=== PATIENT | male | born 1970 | race Hispanic/Latino ===

== ENCOUNTER 2016-12-28 05:52 | Emergency (ER) | payer SELFPAY ==
[2016-12-28] MEDS ORDERED: Sodium Chloride 0.9% 500 ML IV ONE (06:19)
[2016-12-28] MEDS ORDERED: Sodium Chloride 0.9% 1,000 ML IV ONE (06:20)
--- NOTE | 2016-12-28 06:24 | C.PDOC ---
History Of Present Illness A 46 y/o male c/o withdraw from heroin, 5-7 episodes of diarrhea, and abdominal pain that began today. Pt notes his last use was 5 hrs ago and [place] [facility] [place] also requesting detox. Pt denies fever, chills, nausea, vomiting, or any other complaints. Time Seen by Provider: 12/28/16 06:12 Chief Complaint (Nursing): GI Problem History Per: Patient History/Exam Limitations: no limitations Onset/Duration Of Symptoms: Hrs Current Symptoms Are (Timing): Still Present Severity: Mild Location Of Pain/Discomfort: Diffuse Associated Symptoms: Diarrhea. denies: Fever, Chills, Nausea, Vomiting Recent travel outside of the [place]: No Additional History Per: Patient Past Medical History Reviewed: Historical Data, Nursing Documentation, Vital Signs Vital Signs: Last Vital Signs Temp 98.1 F 12/28/16 06:02 Pulse 74 12/28/16 06:02 Resp 20 12/28/16 06:02 BP 155/92 H 12/28/16 06:02 Pulse Ox 100 12/28/16 06:26 - Medical History PMH: Bipolar Disorder, Depression, Schizophrenia Family History: States: Unknown Family Hx - Social History Hx Alcohol Use: Yes Hx Substance Use: Yes - Immunization History Hx Tetanus Toxoid Vaccination: No Hx Influenza Vaccination: No Hx Pneumococcal Vaccination: No Review Of Systems Except As Marked, All Systems Reviewed And Found Negative. Constitutional: Positive for: Other (Heroin abuse). Negative for: Fever, Chills Gastrointestinal: Positive for: Abdominal Pain, Diarrhea. Negative for: Nausea , Vomiting Physical Exam - Physical Exam Appears: Non-toxic, No Acute Distress, Other (Conscious. No tremors noted) Skin: Warm, Dry Head: Atraumatic, Normacephalic Eye(s): bilateral: Normal Inspection Cardiovascular: Rhythm Regular, No Murmur Respiratory: Normal Breath Sounds, No Rales, No Rhonchi, No Wheezing Gastrointestinal/Abdominal: Soft, Tenderness (Mid abdominal tenderness), No Guarding, No Rebound Extremity: Normal ROM, No Tenderness, No Deformity, No Other (No tremors) Extremity: Bilateral: Normal Color And Temperature, Normal ROM Neurological/Psych: Oriented x3 (Awake and alert), Normal Speech, Other (No focal deficit) Gait: Steady ED Course And Treatment O2 Sat by Pulse Oximetry: 100 (RA) Pulse Ox Interpretation: Normal Medical Decision Making Medical Decision Making: Impression: 46 y/o male c/o abdominal pain, diarrhea, and heroin withdraw since today Plans: Blood labs, IV fluids, UA, reassess Disposition - Disposition Disposition Time: 07:00 Condition: STABLE - Clinical Impression Clinical Impression: Drug dependence syndrome, Diarrhea - Scribe Statement The provider has reviewed the documentation as recorded by the Scribe Zia anne All medical record entries made by the Lucyibjoel were at my direction and personally dictated by me. I have reviewed the chart and agree that the record accurately reflects my personal performance of the history, physical exam, medical decision making, and the department course for this patient. I have also personally directed, reviewed, and agree with the discharge instructions and disposition.
[2016-12-28 06:54] LABS: BASO # 0.1 K/uL (0.0-0.2); BASO % 0.6 % (0.0-2.0); EOS # 0.3 K/uL (0.0-0.7); EOS % 3.1 % (0.0-4.0); HEMATOCRIT 38.1 % (35.0-51.0); LYMPH # 3.1 K/uL (1.0-4.3); LYMPH % 33.7 % (20.0-40.0); MEAN CELL VOLUME 90.8 fL (80.0-94.0); MEAN CORPUSCULAR HEMOGLOBIN 30.7 pg (27.0-31.0); MEAN CORPUSCULAR HGB CONC 33.8 g/dL (33.0-37.0); MEAN PLATELET VOLUME 7.3 fL (7.2-11.7); MONO # 0.9 K/uL (0.0-0.8); MONO % 9.3 % (0.0-10.0); RED CELL DISTRIBUTION WIDTH 15.8 % (11.5-14.5); WHITE BLOOD COUNT 9.3 K/uL (4.8-10.8)
[2016-12-28 06:57] LABS: RBC URINE 1 /hpf (0-3); URINE BILIRUBIN NEGATIVE (NEGATIVE); URINE BLOOD NEGATIVE (NEGATIVE); URINE COLOR Yellow (YELLOW); URINE GLUCOSE (UA) NORMAL (Normal); URINE KETONE NEGATIVE (NEGATIVE); URINE LEUKOCYTE ESTERASE NEG Leu/uL (Negative); URINE PROTEIN NEGATIVE (NEGATIVE); URINE UROBILINOGEN NORMAL mg/dL (0.2-1.0); WBC URINE 1 /hpf (0-5)
[2016-12-28 07:03] LABS: CHLORIDE 97 mmol/L (98-107); POTASSIUM 4.3 mmol/L (3.6-5.2); SODIUM 137 mmol/L (132-148)
[2016-12-28 07:05] LABS: BILIRUBIN,TOTAL 0.6 mg/dL (0.2-1.3); CARBON DIOXIDE 27 mmol/L (22-30); GFR AFRICAN-AMERICAN > 60
[2016-12-28 07:06] LABS: ALB/GLOB RATIO 1.3 (1.0-2.1); ALKALINE PHOSPHATASE 45 U/L (38-126); ALT/SGPT 24 U/L (21-72); AST/SGOT 21 U/L (17-59); BLOOD UREA NITROGEN 14 mg/dL (9-20); CALCIUM 8.1 mg/dl (8.6-10.4); GLUCOSE,RANDOM 99 mg/dL (75-110); TOTAL PROTEIN 7.4 g/dL (6.3-8.3)
[2016-12-28 07:07] LABS: ALCOHOL SERUM < 10 mg/dl (0-10)
[2016-12-28 08:25] VITALS: BP 156/88; PULSE 75; RESP 18; TEMP 98.3; O2SAT 99
== END 2016-12-28 08:47 | disposition home or self-care (01) ==
LOC: C.ER 05:52
DX: F11.20 Opioid dependence, uncomplicated (principal); R19.7 Diarrhea, unspecified
CPT/HCPCS: 80053; 81001; 83690; 85025; 96360; 96361; 99285; G0480; J7040

== ENCOUNTER 2017-01-08 23:45 | Inpatient (IN) | payer SELFPAY ==
--- NOTE | 2017-01-09 00:17 | C.PDOC ---
History Of Present Illness pt was medically cleared at [facility] and was accepted for admission by dr prince. no f/c/n/v Time Seen by Provider: 01/09/17 00:09 Chief Complaint (Nursing): Psychiatric Evaluation History Per: Patient History/Exam Limitations: no limitations Onset/Duration Of Symptoms: Days Current Symptoms Are (Timing): Still Present Suicide/Self Injury Attempted (Context): None Modifying Factor(s): None Severity: None Pain Scale Rating Of: 0 Associated Symptoms: Depression Involuntary Hold By: None Recent travel outside of the [place]: No Additional History Per: Patient, Other Past Medical History Reviewed: Historical Data, Nursing Documentation, Vital Signs Vital Signs: Last Vital Signs Temp 98.2 F 01/08/17 23:55 Pulse 80 01/08/17 23:55 Resp 16 01/08/17 23:55 BP 127/78 01/08/17 23:55 Pulse Ox 97 01/08/17 23:55 - Medical History PMH: Bipolar Disorder, Depression, Schizophrenia Family History: States: No Known Family Hx - Social History Hx Alcohol Use: Yes Hx Substance Use: Yes - Immunization History Hx Tetanus Toxoid Vaccination: Yes Hx Influenza Vaccination: Yes Hx Pneumococcal Vaccination: Yes Review Of Systems Constitutional: Negative for: Fever Cardiovascular: Negative for: Chest Pain Respiratory: Negative for: Shortness of Breath Gastrointestinal: Negative for: Nausea Genitourinary: Negative for: Dysuria Musculoskeletal: Negative for: Back Pain Skin: Negative for: Rash Neurological: Negative for: Weakness Psych: Positive for: Depression Physical Exam - Physical Exam Appears: Non-toxic, No Acute Distress Skin: Warm, Dry Chest: Symmetrical Respiratory: No Rales, No Rhonchi, No Wheezing Gastrointestinal/Abdominal: Soft, No Tenderness, No Distention Extremity: Normal ROM Neurological/Psych: Oriented x3, Normal Speech, Normal Cognition Gait: Steady ED Course And Treatment O2 Sat by Pulse Oximetry: 97 Disposition Discussed With : Prasanth Prince Comment: acceptd the pt on his service and took over the care at 12:09AM Doctor Will See Patient In The: Hospital Counseled Patient/Family Regarding: Studies Performed, Diagnosis - Disposition Disposition: HOSPITALIZED Disposition Time: 00:09 Condition: FAIR - POA Present On Arrival: None - Clinical Impression Clinical Impression: Schizophrenia Decision To Admit - Pt Status Changed To: Hospital Disposition Of: Inpatient - Admit Certification Admit to Inpatient:: After my assessment, the patient will require hospitalization for at least two midnights. This is because of the severity of symptoms shown, intensity of services needed, and/or the medical risk in this patient being treated as an outpatient. - InPatient: Physician Admission Certification: I certify that this patient requires 2 or more midnights of care for the following reason:: After my assessment, the patient will require hospitalization for at least two midnights. This is because of the severity of symptoms shown, intensity of services needed, and/or the medical risk in this patient being treated as an outpatient. - . Bed Request Type: Psychiatry Admitting Physician: Prasanth Prince Patient Diagnosis: Schizophrenia
[2017-01-09] MEDS ORDERED: Pneumococcal 23-Valent Vaccine IM ONE (01:59)
--- NOTE | 2017-01-09 11:02 | PCM.PSYCH ---
Initial Psychiatric Evaluation - Initial Psychiatric Evaluation Type of Admission: Voluntary Legal Status: Capacity Chief Complaint (in patient's own words): "I feel horrible." History of Present Illness and Precipitating Events: Patient was seen and evaluated, chart reviewed and discussed with the nurse. The patient is a 46yo male who is here with Bipolar disorder, PTSD, and suicidal ideation. The patient states that he is single with no kids and is supported by his parents. He says that he lives with his parents. The patient states that he wanted to commit suicide yesterday by jumping in front of a train but the train never came. He states that he went to [facility] and then was transferred here last night. He says that he wanted to kill himself because "things are fucked up" and that he "doesn't feel comfortable in his skin". He was diagnosed with Bipolar disorder and PTSD about 6-7 years ago. He says that he was seeing a psychiatrist, Dr. Lehman, in [place] and that he was taking several medications including Risperdal, Xanax, Seroquel, Haldol, Moban, Prozac, Fordyce , Cogentin, and Adderall. He stopped taking his medications and seeing his psychiatrist because his insurance ran out. He states that he was diagnosed with PTSD after his nephew committed suicide at the age of 21 and his aunt of ovarian cancer about 4-5 years ago. He says that he has been shooting heroin, 20-30 bags a day for 5 years and that he last used yesterday. He has been to detox once at [facility] a couple of days ago. He states that he left a day early and then relapsed. He denies going to rehab in the past and states that his longest sobriety was 2 years. He states that he has used Suboxone on the streets and at detox. He drinks 1/5 bottle of vodka a day and has been drinking since he was 15yo. He last consumed alcohol yesterday. He says that he feels hopeless, anxious, fatigued, has lost interest in life, and has difficulty getting out of bed. He denies a change in appetite. He states that he heard voices yesterday telling him to jump in front of a train but is currently denying any auditory or visual hallucinations. He complains of withdrawal symptoms of nausea, abdominal pain, and tremors but denies any vomiting. He denies any allergies or a history of seizures. He says that his aunts, uncles, and cousins have been diagnosed with Bipolar disorder as well and have a history of substance abuse. The patient appears very upset, irritable, and tearful throughout the duration of the interview. He has a depressed mood and is hopeless. He is isolative and has been laying in his room in darkness. He appears to be kempt and has organized speech. He reports irritability and agitation. PMH None reported Current Medications: Active Medications Generic Name Dose Route Start Last Admin Trade Name Freq PRN Reason Stop Dose Admin Hydroxyzine HCl 50 mg 01/09/17 01:06 01/09/17 10:24 Atarax PO 50 mg Q6 PRN Administration Anxiety Nicotine 1 patch 01/09/17 10:00 01/09/17 10:24 Nicoderm Cq TD 1 patch DAILY HIRAL Administration Trazodone HCl 50 mg 01/09/17 01:06 01/09/17 01:29 Desyrel PO 50 mg HS PRN Administration Sleep Past Psychiatric History - Past Psychiatric History Previous Treatment History: Inpatient Pertinent Medical Hx (Current Medical&Sleep Prob, Allergies): Allergies Allergy/AdvReac Type Severity Reaction Status Date / Time No Known Allergies Allergy Verified 01/09/17 00:03 ALPRAZolam [Xanax] 1 mg PO BID 12/28/16 Naproxen [Naprosyn Tab] 375 mg PO BID PRN #20 tab 12/28/16 Ondansetron [Zofran Odt] 4 mg PO Q8 PRN #12 odt 12/28/16 Quetiapine Fumarate [Seroquel] 100 mg PO QID 12/28/16 Zolpidem [Ambien] 5 mg PO HS 12/28/16 diaZEpam [Valium] 10 mg PO QID PRN 12/28/16 Review of Systems - Review of Systems All systems: reviewed and no additional remarkable complaints except - Psychiatric Psychiatric: Anhedonia, Anxiety, Auditory Hallucinations, Depression, Hopelessness, Mood Swings, Suicidal Ideation. absent: Homicidal Ideation, Visual Hallucinations Mental Status Examination - Personal Presentation Personal Presentation: Looks stated age - Affect Affect: Depressed - Motor Activity Motor Activity: Psychomotor Agitation - Reliability in Providing Information Reliability in Providing Information: Good - Speech Speech: Organized - Mood Mood: Depressed, Anxious - Formal Thought Process Formal Thought Process: Hallucinations, Paranoia - Hallucinations/Delusions Hallucinations: Auditory - Obsessions/Compulsions Obsessions: No Compulsions: No - Cognitive Functions Orientation: Person, Place, Situation, Time Sensorium: Alert Attention/Concentration: Attentive Abstract Thinking: [place] Estimate of Intelligence: Below average Judgement: Imparied, as evidence by: Poor judgement, Imparied, as evidence by: Lack of insight into illness - Risk Risk: Suicidal, Withdrawal, Diminished functioning - Strength & Assets Inventory Strength & Assets Inventory: Family support DSM 5 DX - DSM 5 DSM 5 Diagnosis: Bipolar disorder mixed severe with psychotic fx PTSD chronic Opiate use disorder severe Opiate withdrawal Cocaine use disorder severe Alcohol use disorder severe Alcohol withdrawal - Recommended/Plan of Treatment Treatment Recommendations and Plan of Treatment: -Bipolar disorder mixed severe with psychotic fx -PTSD chronic CBT Support and psychoeducation Attend groups and activities daily Risperdal 1 mg by mouth BID Trazodone 50 mg by mouth qHS -Opiate use disorder severe -Opiate withdrawal CBT Support and psychoeducation Attend groups and activities daily Methadone taper Clonidine when necessary Use [place] for abstinence -Alcohol use disorder severe -Alcohol withdrawal CBT Support and psychoeducation Attend groups and activities daily Ativan taper Ativan prn folic acid/thiamine/multivitamin Use [place] for abstinence -Cocaine use disorder severe CBT Psychoeducation Use [place] for abstinence - Smoking Cessation Smoking Cessation Initiated: No
[2017-01-09] MEDS ORDERED: DiphenhydrAMINE 50 mg/ml Inj IM ONE (13:30)
[2017-01-10] MEDS: Multiple Vitamins Tab PO SCH (09:00)
--- NOTE | 2017-01-10 09:50 | PCM.PYCHPN ---
Psychiatric Progress Note - Psychiatric Progress Note Patient seen today, length of contact: 16 min Patient Chief Complaint: "I feel agitated ." Problems Identified/Issues Discussed: Patient seen and evaluated, chart reviewed and discussed with the nurse. Today patient reports irritability and agitation. He reports racing of thoughts and flight of ideas and anxiety. He reports withdrawal symptoms including nausea , vomiting, abdominal cramps, anxiety, headaches and sweating. He reports of auditory hallucinations and persecutory delusions. Patient still appears disorganized and internally preoccupied. He was yelling at the staff to get higher doses of the medications. He is taking medication and denies any side effects. Supportive therapy and psychoeducation were given Medication Change: Yes (start haldol, start depakote, d/c risperdal) Medical Record Reviewed: Yes Mental Status Examination - Cognitive Function Orientation: Person, Place, Situation, Time Memory: Intact Attention: WNL Concentration: Poor Association: WNL Fund of Knowledge: Poor - Mood Mood: Anxious - Affect Affect: Broad - Speech Speech: Pressured - Formal Thought Process Formal Thought Process: Hallucinations, Delusions, Paranoia, Flight of ideas - Suicidal Ideation Suicidal Ideation: No - Homicidal Ideation Homicidal Ideation: No Goal/Treatment Plan - Goal/Treatment Plan Need for Continued Stay: Discharge may exacerbated symptoms, Severe functional impairment Progress Toward Problem(s) and Goals/Treatment Plan: -Bipolar disorder mixed severe with psychotic fx -PTSD chronic CBT Support and psychoeducation Attend groups and activities daily D/C Risperdal 1 mg by mouth BID Haldol 5 mg PO TID Depakote 500 mg PO BID Cogentin 1 mg PO BID Trazodone 50 mg by mouth qHS -Opiate use disorder severe -Opiate withdrawal CBT Support and psychoeducation Attend groups and activities daily Methadone taper Clonidine when necessary Use [place] for abstinence -Alcohol use disorder severe -Alcohol withdrawal CBT Support and psychoeducation Attend groups and activities daily Ativan taper Ativan prn folic acid/thiamine/multivitamin Use [place] for abstinence -Cocaine use disorder severe CBT Psychoeducation Use [place] for abstinence - Smoking Cessation Smoking Cessation Initiated: No
[2017-01-10] MEDS ORDERED: Divalproex 500 mg DR Tab PO SCH (10:00)
[2017-01-11 07:37] VITALS: O2SAT 99
--- NOTE | 2017-01-11 09:41 | PCM.PYCHPN ---
Psychiatric Progress Note - Psychiatric Progress Note Patient seen today, length of contact: 16 min Patient Chief Complaint: "I feel like something is crawling under my skin." Problems Identified/Issues Discussed: Patient seen and evaluated, chart reviewed and discussed with the nurse. Patient remained very agitated and irritable. He reports of auditory hallucinations telling him to kill himself and reports irritable and depressed mood. He is asking something stronger for his racing of thoughts and anxiety. He is still reporting withdrawal symptoms including nausea, anxiety, headaches and sweating. He is still yelling at the staff to get higher doses of the medications. He is taking medication and denies any side effects. Supportive therapy and psychoeducation were given Medication Change: Yes (increase haldol, incease depakote, ) Medical Record Reviewed: Yes Mental Status Examination - Cognitive Function Orientation: Person, Place, Situation, Time Memory: Intact Attention: WNL Concentration: Poor Association: WNL Fund of Knowledge: Poor - Mood Mood: Anxious - Affect Affect: Broad - Speech Speech: Pressured - Formal Thought Process Formal Thought Process: Hallucinations, Delusions, Paranoia, Flight of ideas - Suicidal Ideation Suicidal Ideation: No - Homicidal Ideation Homicidal Ideation: No Goal/Treatment Plan - Goal/Treatment Plan Need for Continued Stay: Discharge may exacerbated symptoms, Severe functional impairment Progress Toward Problem(s) and Goals/Treatment Plan: -Bipolar disorder mixed severe with psychotic fx -PTSD chronic CBT Support and psychoeducation Attend groups and activities daily Haldol 10 mg PO BID Depakote 750 mg PO BID Cogentin 1 mg PO BID Trazodone 100 mg by mouth qHS -Opiate use disorder severe -Opiate withdrawal CBT Support and psychoeducation Attend groups and activities daily Methadone taper Clonidine when necessary Use [place] for abstinence -Alcohol use disorder severe -Alcohol withdrawal CBT Support and psychoeducation Attend groups and activities daily Ativan taper Ativan prn folic acid/thiamine/multivitamin Use [place] for abstinence -Cocaine use disorder severe CBT Psychoeducation Use [place] for abstinence
[2017-01-11] MEDS: Divalproex 250 mg DR Tab PO SCH ×2 (10:18→17:41)
[2017-01-11] MEDS: Multiple Vitamins Tab PO SCH (10:19)
[2017-01-11] MEDS: Aluminum Hydroxide/Magnesium Hydroxide Susp (30 mL) PO PRN (17:41)
[2017-01-12] MEDS: Divalproex 250 mg DR Tab PO SCH ×2 (09:12→17:09)
[2017-01-12] MEDS: Multiple Vitamins Tab PO SCH (09:12)
--- NOTE | 2017-01-12 09:28 | PCM.PYCHPN ---
Psychiatric Progress Note - Psychiatric Progress Note Patient seen today, length of contact: 16 min Patient Chief Complaint: "I'm very very anxious, I need a shot!" Problems Identified/Issues Discussed: The pt is seen, chart reviewed, case discussed with staff. The pt is compliant with medications and reports no side-effects. Symptoms are improving slowly but needs more time to stabilize. He does NOT see the improvements and is panicking over after care as he is homeless. Very med seeking and at times staff splitting, at times selectively disrespectful and demanding Lots of borderline traits After care discussed, support and psychoeducation given. Medication Change: Yes (add gabapentin for anxiety) Medical Record Reviewed: Yes Mental Status Examination - Cognitive Function Orientation: Person, Place, Situation, Time Memory: Intact Attention: WNL Concentration: Poor Association: WNL Fund of Knowledge: Poor - Mood Mood: Anxious - Affect Affect: Broad - Speech Speech: Appropriate - Formal Thought Process Formal Thought Process: Paranoia - Suicidal Ideation Suicidal Ideation: No - Homicidal Ideation Homicidal Ideation: No Goal/Treatment Plan - Goal/Treatment Plan Need for Continued Stay: Discharge may exacerbated symptoms, Severe functional impairment Progress Toward Problem(s) and Goals/Treatment Plan: Continue medications Add gabapentn for anxiety Support and psychoeducation daily Attend groups and activities daily After care planning by CRESENCIO: Consider [facility] Estimated Date of D/C: 01/15/17 - Smoking Cessation Smoking Cessation Initiated: Yes
[2017-01-13] MEDS: Divalproex 250 mg DR Tab PO SCH ×2 (09:09→17:04)
[2017-01-13] MEDS: Multiple Vitamins Tab PO SCH (09:10)
[2017-01-13] MEDS: Aluminum Hydroxide/Magnesium Hydroxide Susp (30 mL) PO PRN (18:14)
--- NOTE | 2017-01-13 19:36 | PCM.PYCHPN ---
Psychiatric Progress Note - Psychiatric Progress Note Patient seen today, length of contact: 17 min Patient Chief Complaint: "I'm crying a lot" Problems Identified/Issues Discussed: The pt is seen, chart reviewed, case discussed with staff. Support given, CBT and [place] used briefly No new symptoms reported, other than the old ones likely exaggerated again, improving slowly and needs some more time No SEs from medications, risks discussed. After care discussed and he was happy to hear about [facility] program How to cope with sxs w/o meds discussed with better response than before Medication Change: No Medical Record Reviewed: Yes Mental Status Examination - Cognitive Function Orientation: Person, Place, Situation, Time Memory: Intact Attention: WNL Concentration: Poor Association: WNL Fund of Knowledge: Poor - Mood Mood: Anxious - Affect Affect: Broad - Speech Speech: Appropriate - Formal Thought Process Formal Thought Process: Paranoia - Suicidal Ideation Suicidal Ideation: No - Homicidal Ideation Homicidal Ideation: No Goal/Treatment Plan - Goal/Treatment Plan Need for Continued Stay: Discharge may exacerbated symptoms, Severe functional impairment Progress Toward Problem(s) and Goals/Treatment Plan: Continue medications Added gabapentn for anxiety, will increase the dose Support and psychoeducation daily Attend groups and activities daily After care planning by CRESENCIO: Consider [facility] Estimated Date of D/C: 01/15/17
[2017-01-14 07:55] VITALS: BP 120/76; PULSE 85; RESP 19; TEMP 98.1
[2017-01-14] MEDS: Divalproex 250 mg DR Tab PO SCH (09:33)
[2017-01-14] MEDS: Multiple Vitamins Tab PO SCH (09:33)
--- NOTE | 2017-01-14 11:04 | PCM.PYCHDC ---
Mental Status Examination - Mental Status Examination Orientation: Person, Place, Situation, Time Memory: Intact Mood: Neutral Affect: Constricted Speech: Soft Attention: WNL Concentration: WNL Association: WNL Fund of Knowledge: WNL Formal Thought Process: No Impairment Description of patient's judgement and insight: good, fair Psychotic Thoughts and Behaviors: denies any AVH Suicidal Ideation: No Current Homicidal Ideation?: No Discharge Summary - Discharge Note Reason for Hospitalization: Patient was seen and evaluated, chart reviewed and discussed with the nurse. The patient is a 46yo male who is here with Bipolar disorder, PTSD, and suicidal ideation. The patient states that he is single with no kids and is supported by his parents. He says that he lives with his parents. The patient states that he wanted to commit suicide yesterday by jumping in front of a train but the train never came. He states that he went to [facility] and then was transferred here last night. He says that he wanted to kill himself because "things are fucked up" and that he "doesn't feel comfortable in his skin". He was diagnosed with Bipolar disorder and PTSD about 6-7 years ago. He says that he was seeing a psychiatrist, Dr. Lehman, in [place] and that he was taking several medications including Risperdal, Xanax, Seroquel, Haldol, Moban, Prozac, Fanshawe , Cogentin, and Adderall. He stopped taking his medications and seeing his psychiatrist because his insurance ran out. He states that he was diagnosed with PTSD after his nephew committed suicide at the age of 21 and his aunt of ovarian cancer about 4-5 years ago. He says that he has been shooting heroin, 20-30 bags a day for 5 years and that he last used yesterday. He has been to detox once at [facility] a couple of days ago. He states that he left a day early and then relapsed. He denies going to rehab in the past and states that his longest sobriety was 2 years. He states that he has used Suboxone on the streets and at detox. He drinks 1/5 bottle of vodka a day and has been drinking since he was 15yo. He last consumed alcohol yesterday. He says that he feels hopeless, anxious, fatigued, has lost interest in life, and has difficulty getting out of bed. He denies a change in appetite. He states that he heard voices yesterday telling him to jump in front of a train but is currently denying any auditory or visual hallucinations. He complains of withdrawal symptoms of nausea, abdominal pain, and tremors but denies any vomiting. He denies any allergies or a history of seizures. He says that his aunts, uncles, and cousins have been diagnosed with Bipolar disorder as well and have a history of substance abuse. The patient appears very upset, irritable, and tearful throughout the duration of the interview. He has a depressed mood and is hopeless. He is isolative and has been laying in his room in darkness. He appears to be kempt and has organized speech. He reports irritability and agitation. Consultations:: List each consultation separately and include: 1. Reason for request. 2. Findings. 3. Follow-up Summary of Hospital Course include:: 1. Description of specific treatment plan utilized for patients during their course of treatmen. 2. Summarize the time- course for resolution of acute symptoms and/or regressed behaviors. 3. Describe issues identified and worked on during hospitalization. 4. Describe medication utilized. 5. Describe medical problems identified and treated. 6. Reassessment of suicide risk Summary of Hospital Course: During the course of his stay, patient (pt) started progressively improving and he no longer remained irritable, depressed, paranoid and suicidal. His mood and paranoia were improved and he started attending groups and meetings and started socializing. Patient denied any feelings of hopelessness, helplessness, and worthlessness, denied any problem with the sleep or appetite, denied suicidal ideation or homicidal ideation. Pt denied any auditory or visual hallucinations. Some changes were made in his current medications and patient was discharged on following medications. He tolerated these medications very well and denied any side effects. CBT and CA were used. Pt is going to [facility], [address] in [place]. - Final Diagnosis (DSM 5) Condition upon Discharge: FAIR DSM 5: -Bipolar disorder mixed severe with psychotic fx -PTSD chronic -Opiate use disorder severe -Opiate withdrawal -Alcohol use disorder severe -Alcohol withdrawal -Cocaine use disorder severe Disposition: HOME/ ROUTINE Follow-up Treatment Plan: Education: Pt was educated and counseled about the risks and benefits of taking and not taking medications. Pt was educated and counseled about the risks of drinking and abusing drugs. Pt was educated and counseled to go to the ER or call 911 if pt develop suicidal ideation or homicidal ideation, worsening of symptoms or severe side effects of the meds. Prescriptions/Medication Reconciliation: Benztropine [Cogentin] 1 mg PO BID #60 tab Divalproex [Depakote DR] 250 mg PO BID #60 tcp Divalproex [Depakote DR] 500 mg PO BID #60 tcp Haloperidol [Haldol] 10 mg PO BID #60 tab traZODone [Desyrel] 100 mg PO HS #30 tab - Smoking Cessation Smoking Cessation Medication prescribed: No - Antipsychotic Medications Pt discharged on 2 or more routine antipsychotic medications: No
== END 2017-01-14 12:17 | disposition home or self-care (01) | DRG 885 ==
LOC: C.ER 23:45 → C.5E 01-09 00:10
PROC: GZ3ZZZZ Medication Management (ICD-10-PCS; principal; 2017-01-09)
PROC: HZ2ZZZZ Detoxification Services for Substance Abuse Treatment (ICD-10-PCS; 2017-01-09)
PROC: GZHZZZZ Group Psychotherapy (ICD-10-PCS; 2017-01-09)
PROC: GZ56ZZZ Individual Psychotherapy, Supportive (ICD-10-PCS; 2017-01-09)
PROC: HZ46ZZZ Group Counseling for Substance Abuse Treatment, Psychoeducation (ICD-10-PCS; 2017-01-09)
PROC: HZ59ZZZ Individual Psychotherapy for Substance Abuse Treatment, Supportive (ICD-10-PCS; 2017-01-09)
DX: F31.64 Bipolar disorder, current episode mixed, severe, with psychotic features (principal); F11.23 Opioid dependence with withdrawal; F10.239 Alcohol dependence with withdrawal, unspecified; F43.12 Post-traumatic stress disorder, chronic